=== PATIENT | female | born 1980 | race Caucasian/White ===

== ENCOUNTER 2023-02-04 08:24 | Outpatient (OUT) | payer OTHER, SELFPAY ==
--- NOTE | 2023-02-04 08:42 | XR_ITS ---
The [address] [address] Patient Name: ELIA WHITLEY MRN: [id number] date: 1980 Sex: F Assigned Patient Location: [facility] Current Patient Location: [facility] Accession/Order Number: [id number] Exam Date: 02/04/2023 08:35 Report Date: 02/04/2023 09:01 At the request of: CHERIE MATTA Procedure: XR wrist RT min 3V PROCEDURE: XR wrist RT min 3V HISTORY: Non displaced fx of head of right radius S52.124A ; right wrist fracture one year ago with continuing pain COMPARISON: None. FINDINGS: BONES:No fracture, acute abnormality, or significant arthropathy. SOFT TISSUES:No visible soft tissue swelling. EFFUSION:None visible. OTHER: Negative. XR/XR wrist RT min 3V IMPRESSION: 1. No appreciable sequela of prior fracture or significant degenerative joint disease. Electronically authenticated by: CHERIE BINGHAM Date: 02/04/2023 09:01
== END 2023-02-04 08:25 | disposition home or self-care (01) ==
LOC: RAD 08:24
PROVIDERS: Visit Provider Orthopaedic Surgery
DX: S52.124A Nondisplaced fracture of head of right radius, initial encounter for closed fracture (principal)
CPT/HCPCS: 73110

== ENCOUNTER 2023-02-22 08:30 | Outpatient (OUT) | payer OTHER, SELFPAY ==
--- NOTE | 2023-02-22 | XR_ITS ---
The [address] [address] Patient Name: ELIA WHITLEY MRN: [id number] date: 1980 Sex: F Assigned Patient Location: [facility] Current Patient Location: [facility] Accession/Order Number: [id number] Exam Date: 02/22/2023 08:56 Report Date: 02/22/2023 09:18 At the request of: CHERIE MATTA Procedure: XR foreign body eye EXAMINATION: XR foreign body eye HISTORY: pre MRI COMPARISON: No relevant comparison available. FINDINGS: ORBITS: Negative for a metallic foreign body. OTHER: Negative. XR/XR foreign body eye IMPRESSION: No metallic foreign body in the orbits Electronically authenticated by: RJ STALLWORTH Date: 02/22/2023 09:18
--- NOTE | 2023-02-22 09:20 | MR_ITS ---
The [place] [id number] Patient Name: ELIA WHITLEY MRN: [id number] date: 1980 Sex: F Assigned Patient Location: [facility] Current Patient Location: [facility] Accession/Order Number: [id number] Exam Date: 02/22/2023 09:20 Report Date: 02/22/2023 16:33 At the request of: CHERIE MATTA Procedure: MR wrist RT wo con HISTORY: Chronic right wrist pain with limited range of motion. MR WRIST RT WO CON: 02/22/2023 9:20 AM EDT COMPARISON: Radiographs right wrist 02/04/2023. TECHNIQUE: Multiplanar, multisequence MRI images of the wrist were obtained. FINDINGS: LIGAMENTS AND TFCC: The scapholunate ligament complex and lunotriquetral ligament appear intact. The ulnar aspect of the TFCC at its expected attachment to the ulna appears ill-defined and of intermediate STIR signal intensity. The central disc of the TFCC appears within normal limits. BONES AND JOINTS: The bone marrow signal intensity appears age appropriate. There is a small joint effusion of the distal radioulnar joint. No bone marrow edema-like signal is seen. TENDONS: The tendons of the wrist appear grossly within normal limits without evidence of significant tendinopathy or tenosynovitis. CARPAL TUNNEL: The visualized median nerve appears grossly within normal limits and no space-occupying mass is seen in the carpal tunnel. MUSCLES AND SOFT TISSUES: The visualized musculature appears grossly within normal limits in signal intensity. No significant soft tissue swelling is seen. MR/MR wrist RT wo con IMPRESSION: 1. There are MRI findings compatible with a tear of the ulnar aspect of the TFCC at its expected attachment to the ulna. 2. Small joint effusion of the distal radioulnar joint. 3. No fracture or bone contusion is seen. Electronically authenticated by: MICHEL CHANEL Date: 02/22/2023 16:33
== END 2023-02-22 08:31 | disposition home or self-care (01) ==
LOC: RAD 08:30
PROVIDERS: Visit Provider Orthopaedic Surgery
DX: S52.124A Nondisplaced fracture of head of right radius, initial encounter for closed fracture (principal)
CPT/HCPCS: 70030; 73221